=== PATIENT | female | born 1985 | race Caucasian/White ===

== ENCOUNTER → 2022-01-30 10:06 | Outpatient (BNVA) | payer SELFPAY | PROVIDERS: PCP Nurse Practitioner Family; Visit Provider Nurse Practitioner Family | DX: I10 Essential (primary) hypertension (principal) | CPT/HCPCS: 80053; 80061; 85025 ==

== ENCOUNTER 2022-02-21 11:51 | Outpatient (CLI) | payer SELFPAY ==
--- NOTE | 2022-02-21 11:57 | MM_ITS ---
WS: [id number] DIAGNOSTIC BILATERAL DIGITAL BREAST TOMOSYNTHESIS MAMMOGRAPHY WITH CAD Bilateral breast ultrasound, limited. HISTORY: Bilateral palpable breast nodules. COMPARISON: None available. TECHNIQUE: Bilateral craniocaudad, mediolateral oblique, and mediolateral views are submitted with to mosynthesis and SM. Spot compression bilateral cc views and LEFT MLO. Computer aided detection utiliz ed. Breast composition: There are scattered areas of fibroglandular density. [place] marker along the an terior RIGHT breast just lateral to the nipple. No underlying soft tissue mass. There is an additiona l palpable marker near 12:00 of the LEFT breast. No soft tissue mass or distortion. Bilateral breast ultrasound, limited. Breast ultrasound is directed to the palpable areas. RIGHT breast at 9:00, 1 cm from the nipple and LEFT breast 12:00, 4 cm from the nipple. LEFT breast 2:00, 6 cm from the nipple. No abnormalities a re identified. Normal appearance of the soft tissues. MM/[id number] IMPRESSION: BI-RADS: 2-Benign FOLLOW UP: 1 Year Follow-up
== END 2022-02-21 11:52 | disposition home or self-care (01) ==
PROVIDERS: PCP Nurse Practitioner Family; Visit Provider Nurse Practitioner Family
DX: N63.15 Unspecified lump in the right breast, overlapping quadrants (principal); N63.25 Unspecified lump in the left breast, overlapping quadrants
CPT/HCPCS: 76642; 77062; G0279

== ENCOUNTER → 2022-04-24 10:37 | Outpatient (BNVA) | payer SELFPAY | PROVIDERS: PCP Nurse Practitioner Family; Visit Provider Nurse Practitioner Family | DX: E78.5 Hyperlipidemia, unspecified (principal); I10 Essential (primary) hypertension; E78.2 Mixed hyperlipidemia; N64.4 Mastodynia | CPT/HCPCS: 80053; 80061 ==